=== PATIENT | female | born 1965 | race Caucasian/White ===

== ENCOUNTER 2017-06-23 20:11 | Inpatient (IN) | payer SELFPAY ==
[2017-06-23] VITALS (7 sets, daily range): BP systolic 94–152; BP diastolic 59–90
[~2017-06-23] VITALS: Ht 157.5 cm; Wt 94.5 kg
[2017-06-23] MEDS ORDERED: NS IV 1000 ML 1,000 ML IV SCH (20:30)
[2017-06-23] MEDS ORDERED: PROPOFOL DRIP (ICU) 100 ML IV SCH (20:30)
[2017-06-23] MEDS ORDERED: SUCCINYLCHOLINE INJ 100 MG/5 ML SYR INJ ONE (20:30)
[2017-06-23] MEDS ORDERED: ETOMIDATE IV SOLN 20 MG/10 ML VIAL IV ONE (20:30)
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
[2017-06-23 20:45] LABS: BASOPHILS % (AUTO) 0 % (0-10); EOSINOPHILS # (AUTO) 0.2 10^3/uL (0.0-0.3); EOSINOPHILS % (AUTO) 2 % (0-10); HEMATOCRIT 41 % (35-52); HEMOGLOBIN 13.3 G/DL (11.5-16.0); LYMPHOCYTES # (AUTO) 1.8 X 10^3 (1.0-4.0); LYMPHOCYTES % (AUTO) 17 % (12-44); MEAN CORPUSCULAR HEMOGLOBIN 29 PG (25-34); MEAN CORPUSCULAR HGB CONC 33 G/DL (32-36); MEAN CORPUSCULAR VOLUME 88 FL (80-99); MEAN PLATELET VOLUME 10.8 FL (7.4-10.4); MONOCYTES # (AUTO) 0.7 X 10^3 (0.0-1.0); MONOCYTES % (AUTO) 7 % (0-12); NEUTROPHILS # (AUTO) 8.2 X 10^3 (1.8-7.8); NEUTROPHILS % (AUTO) 75 % (42-75); PLATELET COUNT 303 10^3/uL (130-400); RED BLOOD COUNT 4.63 10^6/uL (4.35-5.85); RED CELL DISTRIBUTION WIDTH 14.7 % (10.0-14.5)
[2017-06-23 20:48] LABS: INR 0.9 (0.8-1.4); PROTHROMBIN TIME PATIENT 12.3 SEC (12.2-14.7)
[2017-06-23 20:57] LABS: ALANINE AMINOTRANSFERASE 12 U/L (0-55); ALBUMIN 4.1 GM/DL (3.2-4.5); ALKALINE PHOSPHATASE 84 U/L (40-136); BILIRUBIN,TOTAL 0.2 MG/DL (0.1-1.0); BUN/CREATININE RATIO 11; CARBON DIOXIDE 25 MMOL/L (21-32); CHLORIDE 108 MMOL/L (98-107); CREATININE SERUM 0.83 MG/DL (0.60-1.30); GFR ESTIMATED > 60; GLUCOSE 75 MG/DL (70-105); POTASSIUM 4.3 MMOL/L (3.6-5.0); SALICYLATE < 5.0 MG/DL (5.0-20.0); SODIUM 140 MMOL/L (135-145); TOTAL PROTEIN 7.7 GM/DL (6.4-8.2)
[2017-06-23 20:58] LABS: BILIRUBIN,URINE NEGATIVE (NEGATIVE); CLARITY,URINE SLIGHTLY CLOUDY; COLOR,URINE YELLOW; GLUCOSE, URINE (UA) NEGATIVE (NEGATIVE); KETONES,URINE NEGATIVE (NEGATIVE); LEUKOCYTE ESTERASE ,URINE 1+ (NEGATIVE); NITRITE,URINE NEGATIVE (NEGATIVE); PH,URINE 5 (5-9); PROTEIN,URINE 2+ (NEGATIVE); UROBILINOGEN,URINE NORMAL (NORMAL)
[2017-06-23 21:00] LABS: ACETAMINOPHEN < 10 UG/ML (10-30)
[2017-06-23] MEDS ORDERED: NS 100 ML (IVPB) BAG IV ONE (21:00)
[2017-06-23] MEDS ORDERED: IOHEXOL 350 MG/ML 100 ML (OMNIPAQUE 350) VIAL IV ONE (21:00)
[2017-06-23 21:06] LABS: AMPHETAMINE SCREEN, URINE NEGATIVE (NEGATIVE); BARBITURATE SCREEN URINE NEGATIVE (NEGATIVE); BENZODIAZEPINES SCREEN URINE NEGATIVE (NEGATIVE); CANNABINOID SCREEN, URINE NEGATIVE (NEGATIVE); COCAINE SCREEN URINE NEGATIVE (NEGATIVE); METHADONE STAT NEGATIVE (NEGATIVE); METHAMPHETAMINE SCREEN URINE S NEGATIVE (NEGATIVE); OPIATE SCREEN URINE NEGATIVE (NEGATIVE); OXYCODONE STAT NEGATIVE (NEGATIVE); PROPOXYPHENE STAT NEGATIVE (NEGATIVE); TRICYCLIC ANTIDEPRESSANTS SCRE POSITIVE (NEGATIVE)
--- NOTE | 2017-06-23 21:08 | Diagnostic Imaging Report ---
INDICATION: Intubation. No prior examinations are available for comparison. FINDINGS: The endotracheal tube and nasogastric tube appear to be in satisfactory position. There is some right perihilar atelectasis and/or pneumonitis. Left lung is clear. Heart size normal. There is no pneumothorax. IMPRESSION: The ET and NG tubes appear to be in satisfactory position. Right perihilar atelectasis and/or pneumonitis. Dictated by: Dictated on workstation # [id number]
[2017-06-23 21:12] LABS: RBC,URINE RARE /HPF; SQUAMOUS EPITHELIAL CELL,UR RARE /HPF; WBC,URINE RARE /HPF
--- NOTE | 2017-06-23 21:28 | Diagnostic Imaging Report ---
PROCEDURE: CT head and CT cervical spine without contrast. TECHNIQUE: Multiple contiguous axial images were obtained through the brain and cervical spine without the use of intravenous contrast. Sagittal and coronal reformations through the cervical spine were then performed. INDICATION: Head and neck pain after a fall. FINDINGS: The ventricles and sulci are within normal limits. There is no hydrocephalus. There is no midline shift. There is no intracranial mass, hemorrhage or extra-axial fluid collection. The calvarium is intact. The sinuses and mastoid air cells are clear. ET and NG tubes are in place. There are postsurgical changes of a cervical fusion from C4-C7. Bone graft material extends from C4-C7 and there is an anterior plate at C6-7. There is no fracture or traumatic subluxation. The odontoid is intact and lateral masses are well aligned. The prevertebral soft tissues cannot be evaluated due to presence of the ET and NG tube. There is scarring in the right lung apex. IMPRESSION: No acute intracranial abnormality. Extensive postsurgical changes of C4-C7 fusion as described. There is also moderate diffuse cervical spondylosis. There is, however, no acute fracture or traumatic subluxation Diffuse scarring in the right lung apex. Dictated by: Dictated on workstation # [id number]
[2017-06-23 21:30] LABS: ABG BASE EXCESS -2.1 MMOL/L (-2.5-2.5); ABG OXYGEN SATURATION 98 % (94-100); ABG PCO2 46 MMHG (35-45); ABG PO2 81 MMHG (79-93); ABG TCO2 24.7 MMOL/L (21.0-31.0)
[2017-06-23 21:32] LABS: ABG PH 7.32 (7.37-7.43); ALLENS TEST YES-POS; INSPIRED O2 40%; PATIENT TEMP 97.4; VENTILATOR YES
[2017-06-23] MEDS ORDERED: AMIT75TA2 PO (21:40)
--- NOTE | 2017-06-23 21:40 | Diagnostic Imaging Report ---
PROCEDURE: CT angiography of the head and CT angiography of the neck with and without contrast. TECHNIQUE: Contiguous noncontrast images were obtained from the skull base through the vertex. After intravenous contrast administration, helical CT angiography of the neck was performed. Source data was reformatted into multiple MIP projections. Delayed post contrast acquisition was also obtained. INDICATION: Fall and unresponsiveness. FINDINGS: There is scarring in the lung apices bilaterally, right greater than left. There is diffuse enlargement of the thyroid gland. The common carotid, internal carotid and vertebral arteries are widely patent. There is no dissection, stenosis or occlusion. There are no definite proximal intracranial branch occlusions vascular malformations or aneurysms. The parotid and submandibular glands are unremarkable. The ET and NG tubes are in satisfactory positions. There is no pathologically enlarged adenopathy or mass in the neck. Note is again made of post surgical changes in the cervical spine. IMPRESSION: Unremarkable CTA head and neck. Specifically, there is no evidence of dissection, stenosis or occlusion. There are no proximal intracranial occlusions. Diffuse enlargement of the thyroid gland. The possibility of an underlying mass cannot be excluded. Further evaluation with dedicated thyroid ultrasound is recommended. Scarring in the lung apices bilaterally, right greater than left. Dictated by: Dictated on workstation # [id number]
[2017-06-23] MEDS ORDERED: ENOXAPARIN 40 MG/0.4 ML (LOVENOX) SYR SC SCH (23:45)
[2017-06-24] VITALS (42 sets, daily range): BP systolic 89–140; BP diastolic 52–114
[2017-06-24] MEDS: NS IV 1000 ML 1,000 ML IV SCH ×2 (00:02→05:06)
[2017-06-24 00:18] LABS: ABG BASE EXCESS -1.4 MMOL/L (-2.5-2.5); ABG OXYGEN SATURATION 98 % (94-100); ABG PCO2 39 MMHG (35-45); ABG PH 7.38 (7.37-7.43); ABG PO2 86 MMHG (79-93); ABG TCO2 24.2 MMOL/L (21.0-31.0); ALLENS TEST YES-POS; INSPIRED O2 30%; PATIENT TEMP 97.8; VENTILATOR YES
[2017-06-24 03:52] LABS: BASOPHILS % (AUTO) 0 % (0-10); EOSINOPHILS # (AUTO) 0.2 10^3/uL (0.0-0.3); EOSINOPHILS % (AUTO) 2 % (0-10); HEMATOCRIT 40 % (35-52); HEMOGLOBIN 13.1 G/DL (11.5-16.0); LYMPHOCYTES % (AUTO) 27 % (12-44); MEAN CORPUSCULAR HEMOGLOBIN 29 PG (25-34); MEAN CORPUSCULAR HGB CONC 33 G/DL (32-36); MEAN CORPUSCULAR VOLUME 88 FL (80-99); MEAN PLATELET VOLUME 10.8 FL (7.4-10.4); MONOCYTES # (AUTO) 0.7 X 10^3 (0.0-1.0); MONOCYTES % (AUTO) 7 % (0-12); NEUTROPHILS # (AUTO) 7.2 X 10^3 (1.8-7.8); NEUTROPHILS % (AUTO) 65 % (42-75); PLATELET COUNT 296 10^3/uL (130-400); RED BLOOD COUNT 4.53 10^6/uL (4.35-5.85); RED CELL DISTRIBUTION WIDTH 14.9 % (10.0-14.5)
[2017-06-24 04:26] LABS: ALANINE AMINOTRANSFERASE 10 U/L (0-55); ALBUMIN 3.6 GM/DL (3.2-4.5); ALKALINE PHOSPHATASE 76 U/L (40-136); BILIRUBIN,TOTAL 0.2 MG/DL (0.1-1.0); BUN/CREATININE RATIO 9; CALCIUM 8.3 MG/DL (8.5-10.1); CARBON DIOXIDE 23 MMOL/L (21-32); CHLORIDE 110 MMOL/L (98-107); CREATININE SERUM 0.74 MG/DL (0.60-1.30); GFR ESTIMATED > 60; GLUCOSE 113 MG/DL (70-105); MAGNESIUM 2.1 MG/DL (1.8-2.4); PHOSPHORUS 2.1 MG/DL (2.3-4.7); POTASSIUM 3.7 MMOL/L (3.6-5.0); SODIUM 141 MMOL/L (135-145); TOTAL PROTEIN 6.6 GM/DL (6.4-8.2)
[2017-06-24] MEDS ORDERED: MAGNESIUM 1 GM/100 ML IVPB 100 ML IV SCH (06:00)
[2017-06-24] MEDS ORDERED: POTASSIUM CL 10MEQ/50ML IVPB 50 ML IV SCH (06:00)
[2017-06-24] MEDS ORDERED: KCL 20 MEQ TAB (K-DUR) PO SCH (06:00)
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
[2017-06-24] MEDS ORDERED: morphine INJ 4 MG/ML 1 ML (VIAL/SYRINGE) ONE (07:07)
[2017-06-24] MEDS ORDERED: morphine INJ 4 MG/ML 1 ML (VIAL/SYRINGE) IVP PRN (07:15)
[2017-06-24] MEDS ORDERED: DEXMEDETOMIDINE INJECTION 400 MCG in NS (IVPB) 100 ML IV SCH (07:15)
[2017-06-24] MEDS ORDERED: morphine INJ 4 MG/ML 1 ML (VIAL/SYRINGE) IVP ONE (07:15)
--- NOTE | 2017-06-24 07:59 | Diagnostic Imaging Report ---
INDICATION: Suspected overdose, unresponsive Portable semiupright AP view of the chest is obtained. Since the study of one day earlier, endotracheal tube and nasogastric tube remain in stable position. There is continued bilateral parahilar densities which may be due to edema or pneumonitis. No pneumothorax or focal consolidation is seen. IMPRESSION: Parahilar edema and/or pneumonitis similar to previous study without new abnormality detected. Dictated by: Dictated on workstation # [id number]
[2017-06-24] MEDS ORDERED: PANTOPRAZOLE 40 MG/10 ML (PROTONIX) VIAL IV SCH (09:00)
[2017-06-24] MEDS ORDERED: ACET-2267 PO (09:44)
[2017-06-24] MEDS ORDERED: CYCL10TA9 PO (09:44)
--- NOTE | 2017-06-24 09:48 | Physical Therapy Progress Note ---
Therapy Progress Note Per RN, patient is up without difficulty with nursing and does not require skilled PT at this time. Thank you for this referral. BEKA MCKEON PT Jun 24, 2017 09:48
[2017-06-24] MEDS ORDERED: SUCCINYLCHOLINE INJ 100 MG/5 ML SYR INJ ONE (12:05)
[2017-06-24] MEDS ORDERED: ETOMIDATE IV SOLN 20 MG/10 ML VIAL IV ONE (12:05)
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
--- NOTE | 2017-06-24 14:04 | Discharge Instructions ---
Discharge Instructions Patient Instructions Patient Instructions: Medications as listed on the discharge sequence Follow-up with mental health as arranged Activity & Diet Discharge Diet: No Restrictions Activity as Tolerated: Yes PATRICIA IVY MD Jun 24, 2017 14:04
--- NOTE | 2017-06-26 12:09 | Physician Query-Final Dx ---
Final Diagnosis Give Final Diagnosis Please give Final Diagnosis JOEY VENEGAS Jun 26, 2017 12:09
== END 2017-06-24 14:40 | disposition home or self-care (01) | DRG 947 ==
LOC: ER 20:12 → ICU 21:52
PROVIDERS: ADMIT Internal Medicine; ATTEND Internal Medicine
PROC: 5A1935Z Respiratory Ventilation, Less than 24 Consecutive Hours (ICD-10-PCS; principal; 2017-06-23)
DX: R41.82 Altered mental status, unspecified (principal); J96.00 Acute respiratory failure, unspecified whether with hypoxia or hypercapnia; T43.011A Poisoning by tricyclic antidepressants, accidental (unintentional), initial encounter; E66.01 Morbid (severe) obesity due to excess calories; M79.7 Fibromyalgia; F32.9 Major depressive disorder, single episode, unspecified; Z68.38 Body mass index [BMI] 38.0-38.9, adult
CPT/HCPCS: 36415; 36600; 51702; 70450; 70496; 70498; 71045; 72125; 80053; 80306; 80329; 81000; 82805; 83735; 84100; 85025; 85379; 85610; 85730; 87081; 93005; 94002; 94003; 94799; 96361; 96365; 96366